=== PATIENT | male | born 1960 | race Hispanic/Latino ===

== ENCOUNTER 2017-12-08 13:21 | Emergency (ER) | payer OTHER ==
[2017-12-08] MEDS ORDERED: KETOROLAC TROMETHAMINE 30MG/ML ONE (14:26)
== END 2017-12-08 14:50 | disposition home or self-care (01) ==
LOC: EDH 13:21
DX: S97.81XA Crushing injury of right foot, initial encounter (principal); I10 Essential (primary) hypertension; E78.5 Hyperlipidemia, unspecified; Z87.891 Personal history of nicotine dependence; W55.19XA Other contact with horse, initial encounter; Y93.89 Activity, other specified; Y99.8 Other external cause status; Y92.89 Other specified places as the place of occurrence of the external cause
CPT/HCPCS: 73630; 96372; 99284; J1885